=== PATIENT | female | born 1970 | race Caucasian/White ===

== ENCOUNTER 2023-07-10 10:00 | Outpatient (CLI) | payer OTHER ==
[2023-07-10 10:35] LABS: Cardiac Risk 2.2 (Less than 4.5); Cholesterol 197 mg/dl (< 200 Desired); Glucose 95 mg/dL (70-105); HDL Cholesterol 91 mg/dL (>60 Neg Risk); LDL Cholesterol, Calculated 94 mg/dL; Triglycerides 61 mg/dL (Less than 150)
== END 2023-07-10 10:01 | disposition home or self-care (01) ==
LOC: MADLAB 10:00
PROVIDERS: ATTEND Pathology Anatomic Pathology & Clinical Pathology
DX: Z00.00 Encounter for general adult medical examination without abnormal findings (principal)
CPT/HCPCS: 36415; 80061; 82947